=== PATIENT | male | born 1995 | race African-American/Black ===

== ENCOUNTER 2023-07-30 14:14 | Emergency (ER) | payer SELFPAY ==
[2023-07-30 14:29] VITALS: BP 147/85; PULSE 62; RESP 16; TEMP 36.6; O2SAT 100
--- NOTE | 2023-07-30 14:31 | ED.MALEGU ---
HPI - Male Genitourinary General Chief complaint: Urogenital-Male Stated complaint: STD test Time Seen by Provider: 07/30/23 14:18 Source: patient Mode of arrival: ambulatory Limitations: no limitations History of Present Illness HPI Narrative: Ana is a 28-year-old male patient presenting to the clinic today for STD testing. He reports he had a three-some (FMF) 4-5 days ago. His partner is in the clinic today as well to be evaluated for STI. He denies any urinary symptoms, testicle pain, or penile discharge. He denies any fever, chills, body aches, abdominal pain, or flank pain. States he is only wanting to be checked for STIs Related Data Home Medications Medication Instructions Recorded Confirmed No Home Medications 07/30/23 07/30/23 Allergies Allergy/AdvReac Type Severity Reaction Status Date / Time No Known Allergies Allergy Verified 07/30/23 14:50 Review of Systems Review of Systems: Pertinent positives per HPI. Patient denies any fever, chills, rash, headache, visual changes, dizziness, cough, runny nose, sore throat, shortness of breath, chest pain, palpitations, nausea, vomiting, diarrhea, constipation, abdominal pain, or any urinary issues. PMFSH Comments At the time of my signature, I reviewed and agree with the nursing past medical, surgical, social, and family history. There is no relevant family history pertinent to the patient complaint. Exam Narrative: General: Well-developed, well nourished, in no apparent distress. Head: Normocephalic, atraumatic. Cardio: Regular rate and rhythm, s1 and s2 normal, no murmur appreciated. Resp: Clear to auscultation bilaterally, no rhonchi, rales, wheezing or rubs. Abdomen: Soft, pliable, bowel sounds present in all quadrants, non-tender to palpation, no organomegly, no CVAT tenderness. : Deferred Course Course Emergency Course: Portions of this record may have been created with voice recognition software. Level of Care: Express Care Visit Vital Signs Vital signs: Vital Signs Temperature 36.6 C 07/30/23 14:29 Pulse Rate 62 07/30/23 14:29 Respiratory Rate 16 07/30/23 14:29 Blood Pressure 147/85 H 07/30/23 14:29 Pulse Oximetry 100 07/30/23 14:29 Oxygen Delivery Room Air 07/30/23 14:29 Temperature 36.6 C 07/30/23 14:29 Pulse Rate 62 07/30/23 14:29 Respiratory Rate 16 07/30/23 14:29 Blood Pressure 147/85 H 07/30/23 14:29 Pulse Oximetry 100 07/30/23 14:29 Oxygen Delivery Room Air 07/30/23 14:29 Vital signs reviewed MDM - Male Genitourinary MDM Narrative Medical decision making narrative: At the time of visit patient is resting comfortably on the exam table. Patient appears to be nontoxic. Labs: UA negative for any sign of infection, chlamydia, gonorrhea, and Trichomonas testing was sent to the lab. Plan: Patient's partner stated that she possibly has exposure to gonorrhea from prior relationship. Will treat the patient for gonorrhea and give Rocephin with lidocaine 500 mg IM. Will await for further medication until results. Patient voiced understanding. Supportive measures were discussed with the patient and they voiced understanding discharge instructions and agrees to treatment plan. Return precautions reviewed Differential Diagnosis Differential diagnosis: Likely urinary tract infection, urethritis, epididymitis and other (STI) Lab Data Labs: Urine Glucose Negative Reference Range: Negative Urine Bilirubin Negative Reference Range: Negative Urine Ketone Negative Reference Range: Negative Urine Specific [place] 1.025 Reference Range:1.001-1.035 Urine Blood Negative
[2023-07-30] MEDS: cefTRIAXone 500 MG, LIDOCAINE HCL 1% LOCAL INJ 1 ML IM (14:56)
[2023-07-30 20:09] LABS: Trichomonas Vag PCR NOT DETECTED (NOT DETECTE)
[2023-07-30 20:32] LABS: Chlamydia trachomatis NOT DETECTED (NOT DETECTE); Neisseria gonorrhoeae PCR NOT DETECTED (NOT DETECTE)
== END 2023-07-30 15:05 | disposition home or self-care (01) ==
PROVIDERS: Emergency Provider Nurse Practitioner Family
DX: Z11.3 Encounter for screening for infections with a predominantly sexual mode of transmission (principal); Z72.51 High risk heterosexual behavior
CPT/HCPCS: 81003; 87491; 87591; 87661; 96372; 99203; G0463; J0696